=== PATIENT | male | born 1995 | race Caucasian/White ===

== ENCOUNTER 2020-12-09 19:14 | Emergency (ER) | payer OTHER, SELFPAY | END 2020-12-09 21:47 | disposition left against medical advice (07) | PROVIDERS: Emergency Provider Emergency Medicine | DX: S09.90XA Unspecified injury of head, initial encounter (principal); W22.8XXA Striking against or struck by other objects, initial encounter; Y93.9 Activity, unspecified; Y92.9 Unspecified place or not applicable; Y99.9 Unspecified external cause status ==